=== PATIENT | male | born 1990 | race Caucasian/White ===

== ENCOUNTER → 2016-10-14 | Outpatient (CLI) | payer OTHER ==
--- NOTE | 2016-10-14 10:53 | DIAGNOSTIC IMAGING REPORT ---
RIGHT SHOULDER 3 VIEWS HISTORY: RT SHOULDER AND ELBOW PAIN Right COMPARISON: None. FINDINGS: There is no fracture or dislocation. Soft tissues are unremarkable. No radiopaque foreign bodies. The right clavicle is intact. IMPRESSION: Unremarkable right shoulder. Electronically signed by: Abhilash Payan M.D. 10/14/2016 10:52 AM Dictated Date/Time: 10/14/2016 10:51 AM
--- NOTE | 2016-10-14 10:54 | DIAGNOSTIC IMAGING REPORT ---
RIGHT ELBOW 3 VIEWS HISTORY: RT SHOULDER AND ELBOW PAIN Right COMPARISON: Right elbow MRI 10/14/2016. FINDINGS: There is no fracture or dislocation. Soft tissues are unremarkable. No radiopaque foreign bodies. No elbow effusion. IMPRESSION: Unremarkable right elbow. Electronically signed by: Abhilash Payan M.D. 10/14/2016 10:52 AM Dictated Date/Time: 10/14/2016 10:52 AM
== END | disposition home or self-care (01) ==
LOC: C.RDSM 16:42
PROVIDERS: ATTEND Internal Medicine
DX: Z02.5 Encounter for examination for participation in sport (principal)